=== PATIENT | female | born 1960 | race Caucasian/White ===

== ENCOUNTER 2025-06-03 11:02 | Emergency (ER) | payer SELFPAY ==
[2025-06-03] VITALS (11 sets, daily range): BP systolic 95–111; BP diastolic 57–95; PULSE 89–115; RESP 12–28; TEMP 36.5; O2SAT 89–100; BMI 26.6
--- NOTE | 2025-06-03 11:05 | EKG12_ITS ---
Test Reason : POSTERIOR EKG Blood Pressure : */* mmHG Vent. Rate : 98 BPM Atrial Rate : * BPM P-R Int : * ms QRS Dur : 78 ms QT Int : 386 ms P-R-T Axes : * 16 79 degrees QTcB Int : 492 ms Atrial fibrillation Nonspecific ST and T wave abnormality QTcB >= 480 msec Abnormal ECG No previous ECGs available Confirmed by JITENDRA SEGURA, DAVON ([id number]), editorial assistant LORENZO COTTER ([id number]) on 06/06/2025 6:17:48 AM Referred By: CAT Confirmed By: DAVON HAM MD
--- NOTE | 2025-06-03 11:05 | RAD_ITS ---
PROCEDURE: CHEST 1 VIEW (PORTABLE) 06/03/2025 REASON FOR EXAM: CHEST PAIN TECHNIQUE: Frontal view of the chest. COMPARISON: None. FINDINGS: LUNGS AND PLEURA: Small opacity in the left lung base. Asymmetric increased hazy density in the right lung apex. No pleural effusion or pneumothorax. HEART AND MEDIASTINUM: The cardiac silhouette is mildly enlarged. The mediastinal contour is normal. BONES: No acute osseous abnormality. Old right clavicle and multiple right rib fractures. RAD/Chest 1 View (Portable) IMPRESSION: Left basilar and right apical opacities, possibly infectious in etiology. Reading Location: [id number]
--- NOTE | 2025-06-03 11:15 | EKG12_ITS ---
Test Reason : CHEST PAIN Blood Pressure : */* mmHG Vent. Rate : 107 BPM Atrial Rate : * BPM P-R Int : * ms QRS Dur : 80 ms QT Int : 390 ms P-R-T Axes : * -4 -6 degrees QTcB Int : 520 ms Atrial fibrillation with rapid ventricular response Septal infarct , age undetermined ST & T wave abnormality, consider lateral ischemia Prolonged QT Abnormal ECG When compared with ECG of 03-Jun-2025 11:07, MANUAL COMPARISON REQUIRED DATA IS UNCONFIRMED Confirmed by JITENDRA SEGURA, DAVON ([id number]), telegraph editor LORENZO COTTER ([id number]) on 06/06/2025 6:17:40 AM Referred By: CAT Confirmed By: DAVON HAM MD
--- NOTE | 2025-06-03 11:15 | EKG12_ITS ---
Test Reason : WORSE CP Blood Pressure : */* mmHG Vent. Rate : 95 BPM Atrial Rate : * BPM P-R Int : * ms QRS Dur : 90 ms QT Int : 396 ms P-R-T Axes : * -2 85 degrees QTcB Int : 497 ms Atrial fibrillation Septal infarct , age undetermined QTcB >= 480 msec Abnormal ECG When compared with ECG of 03-Jun-2025 11:08, MANUAL COMPARISON REQUIRED DATA IS UNCONFIRMED Confirmed by JITENDRA SEGURA, DAVON ([id number]), social media editor LORENZO COTTER ([id number]) on 06/06/2025 6:17:23 AM Referred By: Confirmed By: DAVON HAM MD
[2025-06-03] MEDS: Nitroglycerin SL (ED/IMG/CATH) 0.4 MG TABLET SL (11:16)
[2025-06-03 11:25] LABS: Hematocrit 41.5 % (37-47); Hemoglobin 13.4 g/dL (12.0-15.0); Immature Granulocytes Count 0.180 X10^3/uL (0.0-0.0); Mean Corp Hgb Conc 32.3 g/dL (32-36); Mean Corpuscular Volume 89.6 fL (81-99); Mean Platelet Vol. 11.5 fl (6.2-12.0); NRBC Flagged by Analyzer 0 % (0-5); Platelet Count 242 K/mm3 (150-450); RBC Distribution Width CV 13.5 % (11.6-14.6); RBC Distribution Width SD 44.1 fl (35.1-43.9); Red Blood Count 4.63 M/mm3 (4.2-5.4); White Blood Count 11.9 K/mm3 (4.4-11.0)
--- NOTE | 2025-06-03 11:27 | EX.ED.CRITCA ---
HPI History of Present Illness Chief Complaint: Cardiac Arrest Detail of Chief Complaint: Ventricular fibrillation cardiac arrest Informant: patient and EMS Onset/Context/Timing Onset: Today and Hours Context: Sudden Onset Timing: Intermittent Quality: Bystander CPR started. AED interpreted rhythm V-fib recommended shock. Location: At a horsing of Mechanism/Context: Yes other Current Severity: Moderate Maximum Severity: Severe Worsened by: Suspected multivessel disease possible circumflex lesions/posterior WV Relieved by: Nothing Associated Symptoms Associated Symptoms: chest pain (Retrosternal pressure) Length of loss of consciousness: Several minutes Narrative Narrative: Patient is a 64-year-old woman who is visiting for a horse event. She has history hypertension. She is on no anticoagulant. She quit smoking many years ago. She denies history of diabetes or hypercholesterolemia. She has no history of cardiac disease. She has had a stress test many years ago. She does not know recall why. Patient apparently was riding her horse. She got off the horse and collapsed. Bystander CPR was initiated. Shock was delivered. Patient was awake when squad arrived. She had a tachycardic rhythm. Appears to be a fib. First EKG was transmitted at 1043. There is ST elevation in aVR. There is depression in V3, V4 and V5. There is also artifact. There appears to be depression inferiorly as well. A second EKG was transmitted at 1052. The ST depression in V3 improved. Depression in V4 and 5 is worse. There is still elevation in aVR. There is nonseptic changes in the lateral leads. Upon arrival since there was concern that she was having a posterior myocardial infarction posterior lead was placed and EKG was obtained at 1107. Patient has a ventricular rate of 98 suspect this is A-fib. QRS complexes 78 ms. QT is 386 ms. Victoria is normal. Patient has depression in the 4 5 and 6 and lead I concerning for subendocardial lateral ischemia. There is no evidence of posterior infarct. Regular EKG was obtained which reveals decreased anterior forces and nonseptic ST-T wave changes. She is in a flutter with variable block versus A-fib flutter. Rate is 107. QS duration 80 ms. QT duration 290 ms. I was informed by nursing staff that patient's reporting worsening pain in spite of nitro. Repeat EKG reveals atrial FaBB rate of 95. Decreased anterior forces and ST depression in V3 4 and 5 suggestive of circumflex lesion. Patient does have some ST elevation in aVR which raises concern for multivessel disease. Prior similar symptoms: No Recent Illness/Hospitalization: No [facility] Medical History Asthma Home Medications ?Medication ?Instructions ?Recorded ?Last Taken ?Type amlodipine 10 mg tablet 10 mg PO DAILY 06/03/25 Unknown History fluoxetine 20 mg capsule 20 mg PO DAILY 06/03/25 Unknown History losartan .ROUTE 06/03/25 Unknown History Allergy/AdvReac Type Severity Reaction Status Date / Time codeine Allergy Rash Verified 06/03/25 11:11 Social History Smoking Status: Former smoker ROS ROS ED Constitutional Constitutional ED: Reports other Details: Patient complains of feeling warm ; Denies fever(s) or subjective Eyes Eyes: Denies blurry vision or change in vision Cardiovascular Cardiovascular: Reports chest pain; Denies palpitations or racing heartbeat Respiratory/Chest Respiratory/Chest: Reports dyspnea; Denies cough Gastrointestinal Gastrointestinal: Reports nausea; Denies abdominal pain or vomiting Genitourinary Genitourinary ED: Denies dysuria or hematuria Musculoskeletal Musculoskeletal: Denies arthralgias or myalgias Integumentary Denies rash Psychiatric Psychiatric: Denies anxiety or depression Hematologic/Lymphatic Hematologic/Lymphatic: Denies easy bleeding or easy bruising EXAM Physical Exam Const Vital Signs: 06/03/25 11:04 06/03/25 11:05 06/03/25 11:16 Temperature 97.7 F L Temperature Source Temporal Pulse Rate 115 H 102 H Respiratory Rate 16 Respiratory Effort Blood Pressure 107/95 H 109/78 Blood Pressure Mean 99 Pulse Ox 92 92 Oxygen Delivery Method Nasal Cannula Nasal Cannula Oxygen Flow Rate (L/min) 4 4 06/03/25 11:17 06/03/25 11:26 06/03/25 11:32 Temperature Temperature Source Pulse Rate 93 98 Respiratory Rate 28 H 28 H Respiratory Effort Normal Non-Labored Blood Pressure 109/78 109/78 Blood Pressure Mean 88 88 Pulse Ox 91 90 Oxygen Delivery Method Nasal Cannula Nasal Cannula Oxygen Flow Rate (L/min) 4 4 06/03/25 11:38 06/03/25 12:00 06/03/25 12:05 Temperature 97.7 F L Temperature Source Pulse Rate 104 H 89 89 Respiratory Rate 22 H 25 H Respiratory Effort Blood Pressure 95/57 L 111/61 111/61 Blood Pressure Mean 69 77 77 Pulse Ox 97 100 Oxygen Delivery Method Bi-pap Oxygen Flow Rate (L/min) Positive well nourished and well developed Constitutional Narrative: Patient is diaphoretic. She became pale when her pain worsened. Vital signs reviewed. General Appearance ED: well developed and pallor HEENT normocephalic and atraumatic; Negative for cyanosis of lips/distal nose Eyes PERRL and EOMs intact bilaterally General Eye ED: Negative for pale conjunctiva or scleral icterus Neck full ROM and no lymphadenopathy Resp Resp Narrative: Patient initially had rales at the bases. Breath sounds are diminished bilaterally. Cardio Cardio Narrative: Irregularly irregular and rapid. There is no murmur. GI non-tender, non-distended and no masses Extremity Extremity Narrative: There is no clubbing, cyanosis, mottling. Distal radial pulses appreciated. Neuro oriented x3 and CN's II-XII intact bilaterally Sensorium / Orientation: alert Psych mental status grossly normal Skin General Skin Exam: pallor; Negative for jaundice Lesions: no lesions Rashes: no rashes MDM MDM MDM Narrative Medical decision making narrative: Patient is status post V-fib arrest with successful resuscitation. Concern patient having posterior [place]. Case was discussed with the STEMI certified income tax preparer. He was informed of patient's history, evolution of her EKG changes. He requested the [facility] be called and to take patient who symptoms are worsening for emergent cardiac catheterization. Patient received aspirin in the emergency department and heparin. Because of concern for multivessel disease she did not receive Brilinta. Nurse was given contact information i.e. her since she is not local to this area. History & Record Review Discussion w/independent historian: Patient Lab Data Attestation: I reviewed the patient's lab results. Lab results narrative: White count is slightly elevated on the otherwise unremarkable. Labs: Laboratory Results - last 24 hr 06/03/25 10:58 WBC 11.9 H RBC 4.63 Hgb 13.4 Hct 41.5 MCV 89.6 MCH 28.9 MCHC 32.3 RDW Std Deviation 44.1 H RDW Coeff of Sanjana 13.5 Plt Count 242 MPV 11.5 Immature Gran % (Auto) 1.500 H Neut % (Auto) 64.9 Lymph % (Auto) 23.9 [place] % (Auto) 7.0 Eos % (Auto) 2.4 Baso % (Auto) 0.3 Absolute Neuts (auto) 7.7 Absolute Lymphs (auto) 2.85 Nucleated RBC % 0 Sodium 139 Potassium 3.1 L Chloride 101 Carbon Dioxide 18.0 L Anion Gap 20 H BUN 17 Creatinine 0.89 Estim Creat Clear Calc 65.47 Est GFR (MDRD) Non-Af 73 BUN/Creatinine Ratio 18.8 Glucose 231 H Calcium 9.4 Troponin T High Sens 14 ABG Data ABG results: ABG 06/03/25 11:56 Specimen Type ART Sample Site R Brach pH 7.38 Bicarbonate Actual 24.1 Total CO2 25 Base Excess -1 O2 Saturation 95 O2 % 50.0 ABG pCO2 40.5 ABG pO2 77 Shant Test Positive O2 Delivery Device BiPAP Vent Mode BiLevel Clinical Comments 8 4 Radiography Chest X-Ray - ED: 1 View and Read by ED Physician (There is increased interstitial markings right upper lobe. There may be some slight cephalization. There is no pleural effusion or curly B-lines. Cardiac silhouette and size normal.) Rhythm Strip Rhythm Strip: A-fib Rate: 105 Ectopy: None Management Discussion w/another healthcare provider: Hospitalist and Feed Mill Manager (Spoke with the STEMI certified income tax preparer Dr. Henriquez.) Treatment and Re-Evaluation Narrative: Documented in the HPI narrative and MDM portion of the EMR Critical Care Time Critical Care Time: Yes Critical care time (excluding procedures): 30-74 minutes (42), Including time spent: (History, physical, documentation, discussion with EMS and patient.), Discussing w/Patient &/or Family/Machine Heddle Cleaner, Discussing w/Consultants (Hospitalist and STEMI certified income tax preparer) and Arranging Admission or Transfer Discharge Plan Triage Chief Complaint: Cardiac Arrest ED Provider: Brennon Prince Dx/Rx/DC Orders Clinical Impression: Cardiac arrest with ventricular fibrillation, Cardiopulmonary arrest with successful resuscitation, Acute hypoxemic respiratory failure, Cardiogenic shock, New onset a-fib, History of asthma Prescriptions: No Action losartan .ROUTE amlodipine 10 mg tablet 10 mg PO DAILY fluoxetine 20 mg capsule 20 mg PO DAILY Primary Care Provider: Care Physician,No Primary Print Language: Wolof Disposition Disposition: Acute Care Hospital [facility]
[2025-06-03] MEDS: Heparin Injection (Vial) 5,000 UNIT/ML VIAL 5000 UNIT IV (11:29)
--- NOTE | 2025-06-03 11:40 | CM.ED ---
Social Work Date of referral: 06/03/25 Reason for referral: Cardiac Arrest Referred by: Social Work Identification Tray Drier went to patient's room however patient was still being worked on and charge nurse was trying to get a hold of patient's . No other family members/friend were in the room at the time of the social work visit. (11:40) When social worker clinical went orion to check on patient, patient had left the ED. SHIRA Manrique. HORTICULTURAL NURSERY ASSISTANT
[2025-06-03 11:52] LABS: Anion Gap 20 (5-15); BUN 17 mg/dL (4-19); BUN/Creat Ratio 18.8 RATIO (10-20); Calcium,Total 9.4 mg/dL (7.6-11.0); Carbon Dioxide 18.0 mmol/L (21.0-32.0); Chloride 101 mmol/L (98-108); Estimated Creatinine Clearance 65.47 ml/min (50-250); Glucose 231 mg/dL (70-99); Potassium 3.1 mmol/L (3.3-5.1); Troponin T High Sensitivity 14 ng/L (<=14)
[2025-06-03] MEDS: Norepinephrine Bit/0.9% NaCl 8 MG/250 ML IV.SOLN 9.4 MG CONT INF (11:54)
[2025-06-03] MEDS: 0.9% Normal Saline (500mL Bag) 500 ML 999 ML IV (11:58)
[2025-06-03 12:01] LABS: Allen Test Positive; Base Excess -1 mmol/L (-2 to +2); Comment 8 4; FI02 50.0; PO2 77 mmHG (75-100); SITE R Brach; SO2 95 % (95-99)
--- NOTE | 2025-06-03 12:24 | ED.RN ---
THIS RN LEFT A VM FOR PT . NO RESPONSE YET. THIS RN ALSO CONTACTED DAUGHTER JANUARY . SHE VERBALIZES UNDERSTANDING OF CURRENT PLAN OF CARE. ALL QUESTIONS PRESENTLY ANSWERED. CARE TURNED OVER TO PAPER TUBE MACHINE OPERATOR TEAM.
[2025-06-03 13:42] LABS: ACT Activated Clotting Time 262 sec (74-137)
--- NOTE | 2025-06-03 14:26 | PCI.CARDCATH ---
PCI Cardiac Cath Report PCI Report: DATE OF PROCEDURE: 06/03/2025 PROCEDURES PERFORMED: 1. Selective left and right coronary angiography. 2. Moderate conscious sedation Indications FOR PROCEDURE: vfib arrest Complications: NONE Specimen: NONE Access: Right Radial Artery Hemostasis: TR band DESCRIPTION OF PROCEDURE: After informed consent was obtained, the patient was brought down to the recyclable products sorter in a fasting state. Right wrist area was prepped, draped and sterilized in the usual fashion. Moderate conscious sedation, administration, documentation and physiologic monitoring of the IV conscious sedation was performed under my direct supervision by a trained registered nurse. Using modified Seldinger technique, right radial artery was then cannulated. A 6-Croatian sheath was inserted, sheath was flushed. 5F JR4 catheter was used to engage the right coronary and 5f JL-3.5 catheter was used to engage Left coronary artery. Multiple orthogonal images were then taken. Aortic valve was not crossed due to the concern of LV mass. After reviewing angiogram, Wire and catheter were taken out. TR band was applied. The patient was sent to floor in stable condition. HEMODYNAMICS: LVEDP: 15 DESCRIPTION OF CORONARY ANATOMY: The left main originates from the left coronary sinus of Valsalva in the usual fashion. There was good reflux of dye from this vessel into the coronary sinus, there was no ventriculization or dampening of pressure noted. The LM bifurcates into LAD and LCX . It has no significant CAD noted. The left anterior descending artery originates from the left main in the usual fashion. It runs in the anterior interventricular groove giving rise to large size diagonal branch and multiple septal perforators and continues distally to wrap around the apex. There is 80% mid stenosis. 70% in first diagonal. Left circumflex artery is INSPECTOR FIBROUS WALLBOARD with L-L collaterals. RCA originates from the right coronary sinus of Valsalva in the usual fashion, There was good reflux if dye from this vessel into the coronary sinus, there was no ventriculization or dampening of pressure noted. It then courses its way down the lateral atrioventricular groove, giving rise to acute marginal branch and continues distally supply right PDA, which makes it Codominant artery. 80% proximal RCA. CONCLUSION: 1. 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 Patient was not loaded with p2y12i. Continue with aspirin and high intensity statin. Given extensive CAD and patient is on levophed. we will transfer her for CABG evaluation.
--- NOTE | 2025-06-03 14:34 | PCM.CONS.C ---
Assessment & Plan Assessment/Plan (1) Cardiac arrest with ventricular fibrillation: PLAN: Cath showed 3 vessels obstructive disease Continue with heparin drip Discontinue Integrilin. Patient was not loaded with p2y12i. Continue with aspirin and high intensity statin. Given extensive CAD and patient is on Levophed. we will transfer her for CABG evaluation. HPI Consult Data Date of Consult: 06/03/25 HPI Narrative HPI Narrative: IZA COELLO, is a 64 F with PMH of Hypertension who presents who is visiting for a horse event. Patient apparently was riding her horse. She got off the horse and collapsed. Bystander CPR was initiated. Shock was delivered. Patient was awake when squad arrived. She had a tachycardic rhythm. she was found to have dynamic EKG changes for which laboratory coordinator was activated. she is complaning of chest pain due to chest compression. She denies any chest pain on exertion from before. [facility] Medical History Asthma Home Medications ?Medication ?Instructions ?Recorded ?Last Taken ?Type amlodipine 10 mg tablet 10 mg PO DAILY 06/03/25 Unknown History fluoxetine 20 mg capsule 20 mg PO DAILY 06/03/25 Unknown History losartan .ROUTE 06/03/25 Unknown History Allergy/AdvReac Type Severity Reaction Status Date / Time codeine Allergy Rash Verified 06/03/25 11:11 Social History Smoking Status: Former smoker Physical Exam Const alert Resp normal respiratory effort Auscultation: Negative for crackles Cardio regular rate, regular rhythm, S1 normal heart sound and S2 normal heart sound Jugular Venous Distention: Negative for JVD Palpation: normal PMI GI normal to inspection, nondistended, normoactive bowel sounds Extremity normal to inspection General Extremity: Negative for edema Objective Data Vital Signs: Vital Signs Temp Pulse Resp BP Pulse Ox O2 Del Method O2 Flow Rate 97.7 F L 89 25 H 111/61 97 Nasal Cannula 4 06/03/25 12:00 06/03/25 12:05 06/03/25 12:00 06/03/25 12:05 06/03/25 13:45 06/03/25 13:45 06/03/25 13:45 FiO2 50 06/03/25 11:45 Oxygen Flow Rate (L/min) 4 Oxygen Delivery Method Nasal Cannula Weight: 160 lb 4.417 oz Body Mass Index (BMI) 26.6 Intake & Output: Intake and Output for Last 24 Hours 06/01/25 06/02/25 06/03/25 23:59 23:59 23:59 Intake Total 1.3 / 1.3 Balance 1.3 / 1.3 Lab / Micro Data 06/03/25 10:58 06/03/25 10:58 Labs: Laboratory Results - last 24 hr 06/03/25 10:58: WBC 11.9 H, RBC 4.63, Hgb 13.4, Hct 41.5, MCV 89.6, MCH 28.9, MCHC 32.3, RDW Std Deviation 44.1 H, RDW Coeff of Sanjana 13.5, Plt Count 242, MPV 11.5, Immature Gran % (Auto) 1.500 H, Neut % (Auto) 64.9, Lymph % (Auto) 23.9, [place] % (Auto) 7.0, Eos % (Auto) 2.4, Baso % (Auto) 0.3, Absolute Neuts (auto) 7.7, Absolute Lymphs (auto) 2.85, Nucleated RBC % 0, Sodium 139, Potassium 3.1 L, Chloride 101, Carbon Dioxide 18.0 L, Anion Gap 20 H, BUN 17, Creatinine 0.89, Estim Creat Clear Calc 65.47, Est GFR (MDRD) Non-Af 73, BUN/Creatinine Ratio 18.8, Glucose 231 H, Calcium 9.4, Troponin T High Sens 14 06/03/25 11:52: Activated Clotting Time 262 H ABG Data ABG results: ABG 06/03/25 11:56 Specimen Type ART Sample Site R Brach pH 7.38 Bicarbonate Actual 24.1 Total CO2 25 Base Excess -1 O2 Saturation 95 O2 % 50.0 ABG pCO2 40.5 ABG pO2 77 Shant Test Positive O2 Delivery Device BiPAP Vent Mode BiLevel Clinical Comments 8 4 Rhythm Strip Rhythm Strip: A-fib Rate: 105 Ectopy: None Cardiology Labs/Tests 06/03/25 10:58: WBC 11.9 H, RBC 4.63, Hgb 13.4, Hct 41.5, MCV 89.6, MCH 28.9, MCHC 32.3, Plt Count 242, MPV 11.5, Immature Gran % (Auto) 1.500 H, Neut % (Auto) 64.9, Lymph % (Auto) 23.9, [place] % (Auto) 7.0, Eos % (Auto) 2.4, Baso % (Auto) 0.3, Absolute Neuts (auto) 7.7, Nucleated RBC % 0, Sodium 139, Potassium 3.1 L, Chloride 101, Carbon Dioxide 18.0 L, Anion Gap 20 H, BUN 17, Creatinine 0.89, Est GFR (MDRD) Non-Af 73, BUN/Creatinine Ratio 18.8, Glucose 231 H, Calcium 9.4 06/03/25 11:56: pH 7.38, Bicarbonate Actual 24.1, Base Excess -1, O2 Saturation 95, ABG pCO2 40.5, ABG pO2 77, Shant Test Positive cath: 3v disease Radiography Diagnostic Testing: Radiology Impression Chest X-Ray 06/03/25 11:05 IMPRESSION: Left basilar and right apical opacities, possibly infectious in etiology. Reading Location: [facility] Risk Score for UA/STEMI Assesmment (YES = 1) Risk Stratification Applicable: Yes Age > or = 65: Yes > or = 3 CAD risk factors (HTN, Hypercholesterolemia, Diabetes, family hx, current smoker): Yes Known CAD (Stenosis > or = 50%): No ASA used in past 7 days: No Severe angina (> or = 2 episodes in 24 hrs): Yes EKG ST change > or = 0.5mm: Yes Positive cardiac markers: No Score HONEY Risk Score of mortality/ recurrent ischemic event over the next 14 days: 4 = 19.9% - Intermediate
== END 2025-06-03 12:32 | disposition short-term general hospital (02) ==
PROVIDERS: Family Medicine; Emergency Provider Emergency Medicine; Visit Provider Emergency Medicine
DX: I49.01 Ventricular fibrillation (principal); I46.2 Cardiac arrest due to underlying cardiac condition; J96.01 Acute respiratory failure with hypoxia; R57.0 Cardiogenic shock; I48.91 Unspecified atrial fibrillation; I25.10 Atherosclerotic heart disease of native coronary artery without angina pectoris; I10 Essential (primary) hypertension; Z79.899 Other long term (current) drug therapy; Z87.891 Personal history of nicotine dependence
CPT/HCPCS: 36600; 51702; 71045; 80048; 82803; 84484; 85025; 85347; 93005; 93458; 94002; 96361; 96374; 96375; 99152; 99153; 99285; Q9967; A4216; C1769; C1887; C1894; J1327